=== PATIENT | male | born 1935 | race Caucasian/White ===

== ENCOUNTER 2022-09-14 02:49 | Outpatient (CLI) | payer MEDICARE, SELFPAY | END 2022-09-14 02:50 | disposition home or self-care (01) | LOC: AMB 10-08 14:32 | PROVIDERS: Visit Provider Family Medicine | DX: J18.9 Pneumonia, unspecified organism (principal); R06.09 Other forms of dyspnea | CPT/HCPCS: A0425; A0434 ==